=== PATIENT | female | born 1980 | race Caucasian/White ===

== ENCOUNTER 2016-08-06 03:45 | Emergency (ER) | payer MEDICAID ==
[~2016-08-06] VITALS: Ht 154.9 cm; Wt 69.9 kg
[2016-08-06 03:55] VITALS: BP 126/83
--- NOTE | 2016-08-06 04:02 | NUR ---
TO ER OF2
--- NOTE | 2016-08-06 04:10 | NUR ---
PT BIB SELF C/O LEFT ANKLE PAIN, AND SWELLING X 2WEEKS, WORSE X2DAYS, NO TRAUMA NOR INJURY. PT WAS SEEN AT [facility] 2 WEEKS AGO FOR SAME S/S. U/S DONE-WAS NEG PRE PT. CAP REFILL-IMM, LT ANKLE SKIN TEMP-WNL, FULL A.R.O.M. NOTED. PT DENIES N/V/D; SKIN IS INTACT, PINK/WARM/DRY; AAOX4, PERRL, WITH EVEN AND STEADY GAIT, NO LIMPING NOTED; LUNGS CLEAR BL, BREATHING UNLABORED; HR EVEN AND REGULAR, BL PERIPHERAL PULSES PRESENT; BS ACTIVE X4, NO TENDERNESS TO PALPATION. PT DENIES ANY FEVER, CP, SOB, OR COUGH AT THIS TIME; PT STATES 4/10 PAIN AT THIS TIME; VSS; PATIENT POSITIONED FOR COMFORT; HOB ELEVATED; BEDRAILS UP X2; BED DOWN.
--- NOTE | 2016-08-06 04:55 | NUR ---
PT BIB WHEELCHAIR TO ER BED 3 FROM XRAY
--- NOTE | 2016-08-06 05:09 | NUR ---
ER MD DR SCHULTE AT BEDSIDE, EVAL DONE.
[2016-08-06 05:30] VITALS: BP 122/76
--- NOTE | 2016-08-06 05:31 | NUR ---
Patient discharged with v/s stable. Written and verbal after care instructions given and explained. Patient alert, oriented and verbalized understanding of instructions. Ambulatory with steady gait. All questions addressed prior to discharge. ID band removed. Patient advised to follow up with PMD. NO Rx WERE given. Patient educated on indication of medication including possible reaction and side effects. Opportunity to ask questions provided and answered.
== END 2016-08-06 05:30 | disposition home or self-care (01) ==
LOC: MED 03:45
DX: M62.831 Muscle spasm of calf (principal)
CPT/HCPCS: 73610; 99284; Q0092

== ENCOUNTER 2016-09-26 04:39 | Emergency (ER) | payer MEDICAID ==
[~2016-09-26] VITALS: Ht 154.9 cm; Wt 77.1 kg
[2016-09-26 04:45] VITALS: BP 111/78
--- NOTE | 2016-09-26 04:49 | NUR ---
TO ER BED 5
--- NOTE | 2016-09-26 04:58 | NUR ---
36Y/F PT. PRESENTS TO ED WITH C/O LT. EAR PAIN X 1 DAY. DENIES FEVER, N/V/D. AAO X4, AMBULATORY WITH STEADY GAIT. RESPIRATIONS ROOM AIR, EVEN AND UNLABORED. NO S/SX OF DISTRESS AT THIS TIME. STATES PAIN 08/16, VSS. ER MD MADE AWARE OF PT. STATUS.
--- NOTE | 2016-09-26 05:19 | NUR ---
Patient being evaluated by at bedside.
[2016-09-26] MEDS ORDERED: KETOROLAC 60 MG/2 ML VIAL IM ONE (05:20)
[2016-09-26 05:37] VITALS: BP 110/70
--- NOTE | 2016-09-26 05:37 | NUR ---
Patient discharged with v/s stable. Written and verbal after care instructions given and explained. Patient alert, oriented and verbalized understanding of instructions. Ambulatory with steady gait. All questions addressed prior to discharge. ID band removed. Patient advised to follow up with PMD. Rx of NORCO 5/325 MG, MOTRIN 800 MG given. Patient educated on indication of medication including possible reaction and side effects. Opportunity to ask questions provided and answered.
== END 2016-09-26 05:37 | disposition home or self-care (01) ==
LOC: MED 04:39
DX: H92.02 Otalgia, left ear (principal); K08.89 Other specified disorders of teeth and supporting structures
CPT/HCPCS: 96372; 99283; J1885

== ENCOUNTER 2017-03-16 08:54 | Emergency (ER) | payer MEDICAID, MEDICARE ==
[~2017-03-16] VITALS: Ht 154.9 cm; Wt 73.9 kg
[2017-03-16 09:06] VITALS: BP 125/85
--- NOTE | 2017-03-16 09:06 | NUR ---
Pt taken to OF2
--- NOTE | 2017-03-16 09:12 | NUR ---
PATIENT PRESENTS TO ED WITH C/O RT EAR PAIN 7/10 SINCE LAST NIGHT, RT SIDED TOOTH ACHE X 1 WK;DENIESE ANY DISCAHRAGES /DECREASE HEARING;DENIES ANY MEDICAL HX; DENIES N/V/D; SKIN IS PINK/WARM/DRY; AAOX4 WITH EVEN AND STEADY GAIT; LUNGS CLEAR BL; HR EVEN AND REGULAR; PT DENIES ANY FEVER, CP, SOB, OR COUGH AT THIS TIME; PATIENT STATES PAIN OF 7/10 AT THIS TIME;PATIENT POSITIONED FOR COMFORT; HOB ELEVATED; BEDRAILS UP X2; BED DOWN. ER MD MADE AWARE OF PT STATUS.
--- NOTE | 2017-03-16 09:18 | NUR ---
DR PARTIDA EVALUATING PT;
[2017-03-16 09:30] VITALS: BP 128/83
--- NOTE | 2017-03-16 09:30 | NUR ---
Patient discharged with v/s stable. Written and verbal after care instructions given and explained. Patient alert, oriented and verbalized understanding of instructions. Ambulatory with steady gait. All questions addressed prior to discharge. ID band removed. Patient advised to follow up with PMD. Rx of TRAMADOL AND PENICILLIN given. Patient educated on indication of medication including possible reaction and side effects. Opportunity to ask questions provided and answered.
== END 2017-03-16 09:30 | disposition home or self-care (01) ==
LOC: MED 08:54
DX: K08.89 Other specified disorders of teeth and supporting structures (principal)
CPT/HCPCS: 99283

== ENCOUNTER 2018-08-31 11:36 | Emergency (ER) | payer MEDICARE, OTHER ==
[~2018-08-31] VITALS: Ht 152.4 cm; Wt 78.0 kg
[2018-08-31 11:57] VITALS: BP 119/77
--- NOTE | 2018-08-31 12:10 | NUR ---
38/F BIB SELF C/O RASHES TO MARK AND LEFT ARM, + ITACHING, STATED POSSIBLE BUG BITE X 3 DAYS. PATIENT POSITIONED FOR COMFORT; HOB ELEVATED; BEDRAILS UP X1; BED DOWN. ER MD MADE AWARE OF PT STATUS.
--- NOTE | 2018-08-31 12:21 | NUR ---
Dr. Hickman evaluating patient at bedside.
[2018-08-31] MEDS ORDERED: DEXAMETHASONE 10 MG/ML VIAL IM ONE (12:30)
[2018-08-31 13:00] VITALS: BP 111/70
--- NOTE | 2018-08-31 13:02 | NUR ---
Patient discharged with v/s stable. Written and verbal after care instructions given and explained. Patient alert, oriented and verbalized understanding of instructions. Ambulatory with steady gait. All questions addressed prior to discharge. ID band removed. Patient advised to follow up with PMD. Rx of DIPHENHYDRAMINE, MEDROL, MUPIROCIN given. Patient educated on indication of medication including possible reaction and side effects. Opportunity to ask questions provided and answered.
== END 2018-08-31 13:02 | disposition home or self-care (01) ==
LOC: MED 11:36
DX: S40.861A Insect bite (nonvenomous) of right upper arm, initial encounter (principal); S40.862A Insect bite (nonvenomous) of left upper arm, initial encounter; Z98.890 Other specified postprocedural states; W57.XXXA Bitten or stung by nonvenomous insect and other nonvenomous arthropods, initial encounter; Y93.89 Activity, other specified; Y92.89 Other specified places as the place of occurrence of the external cause; Y99.8 Other external cause status
CPT/HCPCS: 96372; 99283; J1100